=== PATIENT | male | born 1975 | race Two or more races ===

== ENCOUNTER 2022-10-06 17:08 | Inpatient (IN) | payer OTHER ==
[2022-10-06 19:18] VITALS: BMI 24.7
[2022-10-06] MEDS ORDERED: METOPROLOL TARTRATE 25 MG TABLET (FP) PO ONE (19:53)
[2022-10-06] MEDS ORDERED: LORazepam 2 MG/ML SDV VIAL IM ONE (19:53)
[2022-10-06] MEDS ORDERED: METOPROLOL TARTRATE 25 MG TABLET (FP) ONE (19:59)
[2022-10-06] MEDS ORDERED: ACETAMINOPHEN 325 MG TABLET (FP) PO PRN ×2 (20:06)
[2022-10-06] MEDS ORDERED: POLYETHYLENE GLYCOL (HEALTHYLAX) 3350 17 GM PACKET PO PRN (20:06)
[2022-10-06] MEDS ORDERED: P-EPHED 60MG/TRIPROLIDI 2.5MG TABLET PO PRN (20:06)
[2022-10-06] MEDS ORDERED: BENZOCAINE/MENTHOL (CHLORASEPTIC ) LOZENGE MM PRN (20:06)
[2022-10-06] MEDS ORDERED: MAG HYDROX/AL HYDROX/SIMETH 30 ML UNIT-DOSE CUP PO PRN (20:06)
[2022-10-06] MEDS ORDERED: BISMUTH SUBSALICYLATE 524 MG/30 ML PO PRN (20:06)
[2022-10-06] MEDS ORDERED: guaiFENesin 200 MG/10 ML 10 ML UNIT-DOSE CUPS PO PRN (20:06)
[2022-10-06] MEDS ORDERED: ONDANSETRON *ODT* 4 MG TABLET SL PRN (20:06)
[2022-10-06] MEDS ORDERED: LOPERAMIDE HCL 2 MG CAPSULE PO PRN (20:06)
[2022-10-06] MEDS ORDERED: DICYCLOMINE HCL 10 MG CAPSULE PO PRN (20:06)
[2022-10-06] MEDS ORDERED: MAGNESIUM HYDROX 2400MG/30ML ORAL SUSPENSION 30 ML CUP PO PRN (20:06)
[2022-10-06] MEDS ORDERED: chlordiazePOXIDE HCL 25 MG CAPSULE PO ONE (20:10)
[2022-10-06] MEDS ORDERED: chlordiazePOXIDE HCL 25 MG CAPSULE PO PRN (20:10)
[2022-10-06] MEDS ORDERED: chlordiazePOXIDE HCL 25 MG CAPSULE ONE (21:03)
[2022-10-06] MEDS: MELATONIN 5 MG TABLETS PO PRN (23:08)
[2022-10-06] MEDS: hydrOXYzine PAMOATE 25 MG CAPSULE (FP) PO PRN (23:09)
[2022-10-06] MEDS: chlordiazePOXIDE HCL 25 MG CAPSULE PO SCH (23:09)
[2022-10-06] MEDS: THIAMINE HCL 100 MG TABLET (FP) PO SCH (23:30)
[2022-10-07] MEDS: chlordiazePOXIDE HCL 25 MG CAPSULE PO SCH ×4 (05:59→22:20)
[2022-10-07] MEDS: PRENATAL VITAMINS W/ FOLIC ACID TABLET (FP) PO SCH (10:31)
[2022-10-07] MEDS: METHOCARBAMOL 500 MG TABLET PO PRN (10:33)
[2022-10-07] MEDS: IBUPROFEN 600 MG TABLET (FP) PO PRN (10:33)
[2022-10-07 11:42] LABS: HEMATOCRIT 26.1 % (35.4-49); HEMOGLOBIN 8.1 GM/dL (11.7-16.9); MCH 23.9 pg (25.7-33.7); MCHC 31.1 g/dl (32.0-35.9); MEAN CELL VOLUME 76.7 fl (80-96); MEAN PLT VOLUME 7.5 fl (7.5-11.1); PLATELET COUNT 99 10^3/uL (134-434); RBC 3.41 M/mm3 (4.00-5.60); RDW 22.1 % (11.9-15.9); WHITE BLOOD COUNT 2.6 K/mm3 (4.0-10.0)
[2022-10-07] MEDS ORDERED: FLU VACC QS2022-23(6MOS UP)/PF 60 MCG/0.5 ML SYRINGE IM ONE (12:00)
[2022-10-07 12:26] LABS: ALBUMIN 3.2 g/dl (3.4-5.0)
[2022-10-07 12:29] LABS: BILIRUBIN,TOTAL 0.6 mg/dL (0.2-1); TOT PROT 6.5 g/dl (6.4-8.2)
[2022-10-07 12:41] LABS: BLOOD UREA NITROGEN 5.8 mg/dL (7-18); CALCIUM 8.2 mg/dL (8.5-10.1); CREATININE 0.8 mg/dL (0.55-1.3)
[2022-10-07] MEDS: MELATONIN 5 MG TABLETS PO PRN (22:20)
[2022-10-07] MEDS: THIAMINE HCL 100 MG TABLET (FP) PO SCH (22:20)
[2022-10-08] MEDS: chlordiazePOXIDE HCL 25 MG CAPSULE PO SCH ×4 (05:51→22:18)
[2022-10-08] MEDS: PRENATAL VITAMINS W/ FOLIC ACID TABLET (FP) PO SCH (10:22)
[2022-10-08] MEDS: IBUPROFEN 600 MG TABLET (FP) PO PRN (17:40)
[2022-10-08] MEDS: THIAMINE HCL 100 MG TABLET (FP) PO SCH (22:18)
[2022-10-08] MEDS: MELATONIN 5 MG TABLETS PO PRN (22:19)
[2022-10-09] MEDS ORDERED: chlordiazePOXIDE HCL 10 MG CAPSULE PO PRN
[2022-10-09] MEDS: chlordiazePOXIDE HCL 10 MG CAPSULE PO SCH ×4 (05:50→22:21)
[2022-10-09] MEDS: IBUPROFEN 600 MG TABLET (FP) PO PRN (05:50)
[2022-10-09] MEDS: METHOCARBAMOL 500 MG TABLET PO PRN ×2 (10:09→22:20)
[2022-10-09] MEDS: PRENATAL VITAMINS W/ FOLIC ACID TABLET (FP) PO SCH (10:09)
[2022-10-09] MEDS: hydrOXYzine PAMOATE 25 MG CAPSULE (FP) PO PRN ×2 (10:09→22:22)
[2022-10-09] MEDS: IBUPROFEN 400 MG TABLET (FP) PO PRN ×2 (10:09→17:44)
[2022-10-09 10:56] LABS: BASO % 1.1 % (0-2.0); EOS % 5.4 % (0-4.5); HEMATOCRIT 25.6 % (35.4-49); LYMPH % 25.9 % (8-40); MCH 24.3 pg (25.7-33.7); MCHC 31.2 g/dl (32.0-35.9); MEAN CELL VOLUME 77.9 fl (80-96); MEAN PLT VOLUME 8.4 fl (7.5-11.1); MONO % 19.2 % (3.8-10.2); NEUT % 48.4 % (42.8-82.8); PLATELET COUNT 92 10^3/uL (134-434); RBC 3.29 M/mm3 (4.00-5.60); RDW 22.5 % (11.9-15.9); WHITE BLOOD COUNT 3.5 K/mm3 (4.0-10.0)
[2022-10-09 11:33] LABS: ANISOCYTOSIS 2+; MACROCYTOSIS 0
[2022-10-09] MEDS: FERROUS SO4 325 MG TABLET (FP) PO SCH (11:58)
[2022-10-09] MEDS: PANTOPRAZOLE 40 MG TABLET PO SCH (11:58)
[2022-10-09] MEDS: THIAMINE HCL 100 MG TABLET (FP) PO SCH (22:20)
[2022-10-09] MEDS: MELATONIN 5 MG TABLETS PO SCH (22:21)
[2022-10-10 00:35] LABS: URINE APPEARANCE CLEAR; URINE BILIRUBIN NEGATIVE (NEGATIVE); URINE COLOR YELLOW; URINE GLUCOSE (UA) NEGATIVE (NEGATIVE); URINE KETONE NEGATIVE (NEGATIVE); URINE LEUK ESTERASE NEGATIVE (NEGATIVE); URINE NITRITE NEGATIVE (NEGATIVE); URINE PROTEIN NEGATIVE (NEGATIVE); URINE UROBILINOGEN 0.2 mg/dL (0.2-1.0)
[2022-10-10] MEDS: chlordiazePOXIDE HCL 10 MG CAPSULE PO SCH ×2 (05:44→17:07)
[2022-10-10] MEDS: IBUPROFEN 600 MG TABLET (FP) PO PRN (05:45)
[2022-10-10] MEDS: METHOCARBAMOL 500 MG TABLET PO PRN (05:45)
[2022-10-10] MEDS: PANTOPRAZOLE 40 MG TABLET PO SCH (10:06)
[2022-10-10] MEDS: FERROUS SO4 325 MG TABLET (FP) PO SCH (10:06)
[2022-10-10] MEDS: PRENATAL VITAMINS W/ FOLIC ACID TABLET (FP) PO SCH (10:06)
[2022-10-10] MEDS: hydrOXYzine PAMOATE 25 MG CAPSULE (FP) PO PRN ×2 (10:06→22:15)
[2022-10-10 17:30] VITALS: RESP 18
[2022-10-10] MEDS: THIAMINE HCL 100 MG TABLET (FP) PO SCH (22:14)
[2022-10-10] MEDS: MELATONIN 5 MG TABLETS PO SCH (22:14)
[2022-10-11] MEDS ORDERED: chlordiazePOXIDE HCL 10 MG CAPSULE PO ONE (05:00)
[2022-10-11 06:49] VITALS: BP 141/90; PULSE 83; TEMP 97.9
[2022-10-11] MEDS: PANTOPRAZOLE 40 MG TABLET PO SCH (09:01)
[2022-10-11] MEDS: PRENATAL VITAMINS W/ FOLIC ACID TABLET (FP) PO SCH (09:01)
[2022-10-11] MEDS: FERROUS SO4 325 MG TABLET (FP) PO SCH (09:01)
== END 2022-10-11 09:21 | disposition home or self-care (01) | DRG 775 ==
LOC: YASAS 17:08 → Y6N 21:04
PROVIDERS: ADMIT Allergy & Immunology; ATTEND Surgery
PROC: HZ2ZZZZ Detoxification Services for Substance Abuse Treatment (ICD-10-PCS; principal; 2022-10-06)
DX: F10.230 Alcohol dependence with withdrawal, uncomplicated (principal); F10.220 Alcohol dependence with intoxication, uncomplicated; F10.280 Alcohol dependence with alcohol-induced anxiety disorder; F10.282 Alcohol dependence with alcohol-induced sleep disorder; F17.210 Nicotine dependence, cigarettes, uncomplicated; F43.10 Post-traumatic stress disorder, unspecified; I10 Essential (primary) hypertension; M19.90 Unspecified osteoarthritis, unspecified site; D64.9 Anemia, unspecified; R00.0 Tachycardia, unspecified; Z86.69 Personal history of other diseases of the nervous system and sense organs; Z62.810 Personal history of physical and sexual abuse in childhood; Z56.0 Unemployment, unspecified; Z59.00 Homelessness unspecified
CPT/HCPCS: 0241U-QW; 36415; 80053; 81003; 82607; 82746; 83540; 83550; 85025; 85027; 86780; 87811; C9803-CS; G0008; Q2036; U0003; U0005